=== PATIENT | male | born 1955 | race Caucasian/White ===

== ENCOUNTER 2019-06-14 10:18 | Inpatient (IN) | payer OTHER ==
[~2019-06-14] VITALS: Ht 165.1 cm; Wt 79.4 kg
[2019-06-14 10:41] VITALS: BP 122/83
[2019-06-14] MEDS ORDERED: SYNTHROID175 MCG PO (10:43)
[2019-06-14 11:12] LABS: URINE BILIRUBIN NEGATIVE (Negative); URINE BLOOD 2+ (Negative); URINE CLARITY CLEAR; URINE COLOR YELLOW; URINE GLUCOSE-RANDOM NEGATIVE (Negative); URINE KETONES NEGATIVE (Negative); URINE NITRITE-REFLEX NEGATIVE (Negative); URINE PROTEIN NEGATIVE (Negative); URINE SPECIFIC GRAVITY <= 1.005 (1.005-1.030); URINE UROBILINOGEN 0.2 E.U./dl (0.2-1.0)
[2019-06-14 11:13] LABS: URINE LEUKOCYTES-REFLEX 2+ (Negative)
[2019-06-14 11:15] LABS: ABSOLUTE BASOPHILS 0.1 thou/uL (0.0-0.2); ABSOLUTE LYMPHOCYTES 0.8 thou/uL (0.8-5.3); ABSOLUTE MONOCYTES 0.6 thou/uL (0.0-1.2); ABSOLUTE NEUTROPHILS 8.8 thou/uL (1.6-8.1); EOSINOPHILS 0.1 %; HEMATOCRIT 39.3 % (42.0-52.0); HEMOGLOBIN 13.4 gm/dL (14.0-18.0); LYMPHOCYTES 8.1 %; MCH 30.3 pg (26.0-34.0); MCHC 34.2 g/dL (28.0-37.0); MCV 88.8 fL (80.0-100.0); MPV 8.1 fl. (7.2-11.1); NUCLEATED RBCS 0 /100WBC; PLATELET COUNT* 214 thou/uL (150-400); POLYS 84.8 %; RBC 4.43 mil/uL (4.50-6.00); RDW-CV 13.4 % (10.5-14.5); WBC 10.3 thou/uL (4.0-11.0)
[2019-06-14 11:23] LABS: CASTS None Seen /LPF (None Seen); CRYSTALS None Seen /LPF (None Seen); MUCUS None Seen strn/LPF (None Seen); SQUAMOUS 0-3 Few /LPF (0-3); URINE RBC 3-10 Few /HPF (0-2); URINE WBC-REFLEX >25 Many /HPF (0-5)
[2019-06-14 11:25] LABS: CALCIUM 8.6 mg/dL (8.5-10.1); CREATININE 1.7 mg/dL (0.6-1.3); POTASSIUM 3.6 mmol/L (3.5-5.1)
[2019-06-14 11:30] LABS: ALBUMIN 3.6 g/dL (3.4-5.0); TOTAL BILIRUBIN 0.9 mg/dL (<0.1-1.0); TOTAL PROTEIN 7.1 g/dL (6.4-8.2)
[2019-06-14 12:10] LABS: INFLUENZA A ANTIGEN Negative (Negative); INFLUENZA B ANTIGEN Negative (Negative)
--- NOTE | 2019-06-14 12:53 | NUR ---
PT GIVEN TURKEY SANDWICH, JELLO, PUDDING AND SPRITE PER REQUEST.
[2019-06-14 13:41] VITALS: BP 134/82
[2019-06-14 13:50] VITALS: BP 117/59
[2019-06-14 16:23] VITALS: BP 98/62
--- NOTE | 2019-06-14 19:07 | NUR ---
PT ARRIVED TO ROOM 219 AT APPROX 1350 FROM ER. PT A/O X4, DENIES PAIN, ABDOMEN HYPERACTIVE, PT REPORTS TAKING A LAXITIVE LAST NIGHT WITH MULTIPLE LOOSE STOOLS BUT NONE TODAY. PT UP AD ILIA, VSS, SB ON T THE MONITOR. PT UPDATED ON PLAN OF CARE. WILL CONTINUE TO MONITOR.
[2019-06-15] VITALS: BP 122/53
[2019-06-15 04:00] VITALS: BP 100/43
[2019-06-15 05:21] LABS: HEMATOCRIT 37.4 % (42.0-52.0); HEMOGLOBIN 12.6 gm/dL (14.0-18.0); MCH 30.3 pg (26.0-34.0); MCHC 33.6 g/dL (28.0-37.0); MCV 90.4 fL (80.0-100.0); RBC 4.14 mil/uL (4.50-6.00); RDW-CV 13.4 % (10.5-14.5); WBC 5.7 thou/uL (4.0-11.0)
[2019-06-15 05:25] LABS: CALCIUM 7.7 mg/dL (8.5-10.1); CREATININE 1.4 mg/dL (0.6-1.3); MAGNESIUM 2.1 mg/dL (1.8-2.4)
--- NOTE | 2019-06-15 05:53 | NUR ---
PT HAS RESTED COMFORTABLY WITH NO C/O NAUSEA/VOMITING. PT HAS MAINTAINED SAFETY. PT C/O A HEADACHE IN EARLIER PART OF SHIFT THAT WAS MANAGED WITH TYLENOL.
[2019-06-15 08:30] VITALS: BP 130/64
[2019-06-15 12:17] VITALS: BP 134/67
[2019-06-15 16:28] VITALS: BP 126/60
--- NOTE | 2019-06-15 18:29 | NUR ---
I ASSUMED CARE OF THE PATIENT AT 0700. HE IS ALERT AND ORIENTED X4 AND IS UP AD ILIA. HOURLY ROUNDING IS COMPLETED AND PATIENT NEEDS ARE MET. BED IS IN THE LOW LOCKED POSITION AND CALL LIGHT IS IN REACH. PAIN IS DENIED. HE IS STILL EMPLOYEED AND IS EAGER TO GET BACK TO WORK. UROLOGY WOULD LIKE HIM TO HAVE ANOTHER DAY OF IV ANTIBIOTICS. HIMS DISCHARGE IS READY WHEN UROLOGY SIGNS OFF. WILL CONTINUE TO MONITOR.
[2019-06-15 20:10] VITALS: BP 129/66
--- NOTE | 2019-06-15 23:52 | NUR ---
PT TRANSFERED TO ROOM 315 FROM ROOM 219. ALERT AND ORIENTED. UP AD ILIA. MEDS GIVEN PER EMAR. ORIENTED TO ROOM AND CALL LIGHT. CALL IGHT WITHIN REACH. WILL CONTINUE TO MONITOR.
[2019-06-16 04:39] LABS: HEMATOCRIT 38.1 % (42.0-52.0); HEMOGLOBIN 13.1 gm/dL (14.0-18.0); MCH 30.7 pg (26.0-34.0); MCHC 34.4 g/dL (28.0-37.0); MCV 89.3 fL (80.0-100.0); MPV 8.2 fl. (7.2-11.1); RBC 4.26 mil/uL (4.50-6.00); RDW-CV 13.4 % (10.5-14.5); WBC 5.3 thou/uL (4.0-11.0)
[2019-06-16 04:50] LABS: CALCIUM 8.5 mg/dL (8.5-10.1); CREATININE 1.4 mg/dL (0.6-1.3); MAGNESIUM 2.3 mg/dL (1.8-2.4); POTASSIUM 4.3 mmol/L (3.5-5.1)
--- NOTE | 2019-06-16 06:01 | NUR ---
PT ALERT AND ORIENTED. VSS ON RA. ASSESSMENT DOCUMENTED. UP AD ILIA. MEDS GIVEN PER EMAR. PT SLEPT OST SHIFT. DENIES PAIN, N/V. NO FEVER NOTED THIS SHIFT. CALL LIGHT WITHIN REACH. HOURLY ROUNDINGS MADE. ANTICIPATED DC TO HOME TODAY. WILL CONTINUE TO MONITOR.
[2019-06-16 08:00] VITALS: BP 128/69
--- NOTE | 2019-06-16 09:27 | NUR ---
0764 ASSUMED CARE OF PATIENT. PATIENT ANXIOUS TO GO HOME. SEE DOCUMENTED ASSESSMENT.
--- NOTE | 2019-06-16 09:28 | NUR ---
DR GROSS HERE AND WILL DISCHARGE PATIENT. NO BLOOD VISULAIZED IN URINE AT THIS TIME
[2019-06-16] MEDS ORDERED: BACTRIM DS TAB1 EACH PO (09:41)
[2019-06-16 09:50] VITALS: BP 128/69
--- NOTE | 2019-06-16 10:24 | NUR ---
IV DISCONTINUED. DISCHARGE EDUCATION DONE. PRESCRIPTION CALLED IN. DISCHARGED AMBULATORY AT 1015
== END 2019-06-16 10:15 | disposition home or self-care (01) | DRG 690 ==
LOC: M.ERS 10:18 → M.TBA-ER 12:48 → M.2W 12:48 → M.3W 06-15 19:50
PROVIDERS: Nurse Practitioner Family; ADMIT Internal Medicine
DX: N30.01 Acute cystitis with hematuria (principal); E03.9 Hypothyroidism, unspecified; N40.0 Benign prostatic hyperplasia without lower urinary tract symptoms; N41.9 Inflammatory disease of prostate, unspecified; N28.9 Disorder of kidney and ureter, unspecified; Z79.899 Other long term (current) drug therapy; Z87.891 Personal history of nicotine dependence; Z80.42 Family history of malignant neoplasm of prostate